=== PATIENT | female | born 1930 | race Caucasian/White ===

== ENCOUNTER 2016-12-25 13:51 | Emergency (ER) | payer MEDICARE, OTHER ==
[~2016-12-25 13:51] MED LIST: AMBIEN PO; AMBIEN10 MG PO; ANTIVERT12.5 MG PO; ASPIRIN81 M1 PO; ATIVAN PO; CITRACAL200 M1 PO; CORDARONE200 M1 PO; LEVOFLOXACIN500 MG PO; LORAZEPAM0.5 MG PO; PRILOSEC PO; SALMON OIL 1,001 CAP PO; TOPROL XL PO; ULTRAM PO; VITAMIN D400 UNI1 PO; ZOCOR PO; ZOLOFT PO; ZOLOFT50 MG PO
== END 2016-12-25 17:15 | disposition home or self-care (01) ==
LOC: CED 13:51
DX: R21 Rash and other nonspecific skin eruption (principal); E11.9 Type 2 diabetes mellitus without complications; I10 Essential (primary) hypertension; Z98.49 Cataract extraction status, unspecified eye; Z88.2 Allergy status to sulfonamides; Z91.013 Allergy to seafood
CPT/HCPCS: 99282